=== PATIENT | female | born 1990 | race Two or more races ===

== ENCOUNTER 2017-01-01 03:32 | Emergency (ER) | payer OTHER ==
[2017-01-01 03:39] VITALS: TEMP 97.9
--- NOTE | 2017-01-01 04:39 | EDPHY ---
H & P Stated Complaint: slammed left thumb in car door 2330 Time Seen by Provider: 01/01/17 04:30 HPI/ROS: Chief Complaint: Left thumb pain HPI: 26-year-old woman signed her left thumb in a car door at 11:30 a.m. this morning. She has had increasing pain and swelling. There is blood under her nail. Denies any other injuries at this time. ROS: 10 point Review of Systems is negative except as noted in the HPI. Physical Exam: General: Awake, alert, no acute distress Left thumb. There is a moderate size subungual hematoma. She has tenderness over the distal phalanx on both the dorsal and palmar surface. There is no deformity. She has no proximal phalanx tenderness. Sensations intact. She has full flexion and extension of the MCP and interphalangeal joint. There are no other injuries. Skin: No rash - Personal History LMP (Females 10-55): Now Current Tetanus Diphtheria and Acellular Pertussis (TDAP): Yes - Medical/Surgical History Hx Asthma: No Hx Chronic Respiratory Disease: No Hx Diabetes: No Hx Cardiac Disease: No Hx Renal Disease: No Hx Cirrhosis: No Hx Alcoholism: No Hx HIV/AIDS: No Hx Splenectomy or Spleen Trauma: No Other PMH: denies - Social History Smoking Status: Never smoked Constitutional: Initial Vital Signs Temperature (C) 36.6 C 01/01/17 03:35 Heart Rate 76 01/01/17 03:35 Respiratory Rate 14 01/01/17 03:35 Blood Pressure 123/77 H 01/01/17 03:35 O2 Sat (%) 99 01/01/17 03:35 O2 Delivery Mode Room Air Allergies/Adverse Reactions: No Known Allergies Allergy (Unverified 01/01/17 03:34) Home Medications: Medication Instructions Recorded Bc Pills 01/01/17 Medical Decision Making - Diagnostics Imaging Results: Left thumb x-ray: No fracture. Procedures: Procedure: Nail trephination. Indication: Subungual hematoma. Anesthesia: None required Verbal consent was obtained from the patient to drain a subungual hematoma. The patient was prepped in the usual fashion. The subungual hematoma was drained with electrocautery. The subungual hematoma was drained successfully and there were no complications. The procedure was performed by myself. Departure - Departure Disposition: Home, Routine, Self-Care Clinical Impression: Crush injury to thumb, Subungual hematoma Condition: Good Instructions: Crush Injury (ED), Subungual Hematoma (ED) Additional Instructions: You may alternate ibuprofen with acetaminophen as needed for pain. Follow up with primary care physician in 4-5 days if symptoms are not improving. Return to the emergency depart for increasing redness, swelling, pain, or any other concern. Referrals: Mckay Rodriguez MD [Medical Doctor] - As per Instructions
[2017-01-01] MEDS ORDERED: IBUPROFEN 600 MG TAB PO ONE ×2 (04:53→04:57)
[2017-01-01 04:56] VITALS: BP 118/67; PULSE 82; RESP 17; O2SAT 96
== END 2017-01-01 04:55 | disposition home or self-care (01) ==
PROC: 0H9QXZZ Drainage of Finger Nail, External Approach (ICD-10-PCS; principal; 2017-01-01)
DX: S60.112A Contusion of left thumb with damage to nail, initial encounter (principal); W23.1XXA Caught, crushed, jammed, or pinched between stationary objects, initial encounter